=== PATIENT | female | born 1940 | race Caucasian/White ===

== ENCOUNTER 2017-08-17 12:43 | Emergency (ER) | payer MEDICARE, OTHER ==
[2017-08-17 12:55] VITALS: BP 167/75; PULSE 61; RESP 18; TEMP 97.8; O2SAT 100; BMI 23.4
[2017-08-17] MEDS ORDERED: Sodium Chloride 0.9% 1,000 ML IV STA (13:08)
--- NOTE | 2017-08-17 13:09 | ED PDOC ---
HPI:Nausea, Vomiting, Diarrhea Time Seen by Provider: 08/17/17 12:59 Chief Complaint (Provider): Vomiting History Per: Patient History/Exam Limitations: no limitations Onset/Duration Of Symptoms: Days (x1) Current Symptoms Are (Timing): Still Present Associated Symptoms: Nausea, Vomiting Additional History Per: Family (Son) Additional Complaint(s): Mckenna is a 77 y/o female who presents to the ED complaining of nausea associated with generalized weakness and 2 episodes of vomiting since waking up today. Denies hematemesis. No headache, dizziness, diarrhea, abdominal pain, chest pain , shortness of breath, or cough. There are no known sick contacts. Reports she felt feverish but upon arrival to ED patient is afebrile. PMD: Lamin Past Medical History Reviewed: Historical Data, Nursing Documentation, Vital Signs Vital Signs: Last Vital Signs Temp 97.8 F 08/17/17 12:51 Pulse 61 08/17/17 12:51 Resp 18 08/17/17 12:51 BP 167/75 H 08/17/17 12:51 Pulse Ox 100 08/17/17 12:51 - Medical History PMH: Arthritis, HTN, Hypercholesterolemia, Hypothyroidism - Surgical History Surgical History: Cholecystectomy - Family History Family History: States: Unknown Family Hx - Social History Current smoker - smoking cessation education provided: No Alcohol: None Drugs: Denies - Home Medications Home Medications: Ambulatory Orders Medication Instructions Recorded Ondansetron [Zofran] 4 mg PO Q8H PRN #6 tab 08/17/17 - Allergies Allergies/Adverse Reactions: Allergies Allergy/AdvReac Type Severity Reaction Status Date / Time No Known Allergies Allergy Unverified 07/28/13 14:14 Review of Systems ROS Statement: Except As Marked, All Systems Reviewed And Found Negative Constitutional: Positive for: Fever, Weakness (generalized) Cardiovascular: Negative for: Chest Pain Respiratory: Negative for: Cough, Shortness of Breath Gastrointestinal: Positive for: Nausea, Vomiting. Negative for: Abdominal Pain , Diarrhea, Hematemesis Genitourinary Female: Negative for: Dysuria, Frequency, Incontinence Musculoskeletal: Negative for: Back Pain, Leg Pain Neurological: Negative for: Weakness, Numbness, Headache, Dizziness Physical Exam - Reviewed Nursing Documentation Reviewed: Yes Vital Signs Reviewed: Yes - Physical Exam Appears: Positive for: Non-toxic, No Acute Distress Head Exam: Positive for: ATRAUMATIC, NORMAL INSPECTION, NORMOCEPHALIC Skin: Positive for: Normal Color, Warm, Dry Eye Exam: Positive for: EOMI, Normal appearance, PERRL Neck: Positive for: Normal, Painless ROM, Supple Cardiovascular/Chest: Positive for: Regular Rate, Rhythm. Negative for: Murmur Respiratory: Positive for: Normal Breath Sounds. Negative for: Accessory Muscle Use, Respiratory Distress Pulses-Radial (L): 2+ Pulses-Radial (R): 2+ Gastrointestinal/Abdominal: Positive for: Normal Exam, Soft. Negative for: Tenderness Back: Positive for: Normal Inspection. Negative for: L CVA Tenderness, R CVA Tenderness, Vertebral Tenderness Extremity: Positive for: Normal ROM. Negative for: Pedal Edema, Deformity Neurologic/Psych: Positive for: Alert, Oriented. Negative for: Motor/Sensory Deficits - Laboratory Results Result Diagrams: 08/17/17 12:25 08/17/17 12:25 Interpretation Of Abn Labs: 3.4 k - ECG ECG: Positive for: Interpreted By Me, Viewed By Me ECG Rhythm: Positive for: Normal QRS, Sinus Rhythm Interpretation Of Abn EKG: no infarcting pattern O2 Sat by Pulse Oximetry: 100 (RA) Pulse Ox Interpretation: Normal - Radiology X-Ray: Interpreted by Me, Viewed By Me X-Ray Interpretation: No Acute Disease - Progress ED Course And Treament: 1535: Pt. had fall 2 weeks ago accidentally and has pain to the L shoulder. X- ray done and no acute. 1539: Stable. Tolerated PO. Ambulated with no issues. AAOx3. Smiling. Fu with pcp. Medical Decision Making Medical Decision Making: Time: 13:07 Initial Plan: --EKG --CMP --Lipase --Troponin I --CBC --NS IV 1000 ml at 1000 mls/hr --Zofran 4 mg IV --Pending reevaluation Scribe Attestation: Documented by Carrie Shoaib, acting as a scribe for Radhames Ferguson MD Provider Scribe Attestation: All medical record entries made by the Scribe were at my direction and personally dictated by me. I have reviewed the chart and agree that the record accurately reflects my personal performance of the history, physical exam, medical decision making, and the department course for this patient. I have also personally directed, reviewed, and agree with the discharge instructions and disposition. Disposition - Clinical Impression Clinical Impression: Vomiting, Hypokalemia - Patient ED Disposition Is Patient to be Admitted: No Counseled Patient/Family Regarding: Studies Performed, Diagnosis, Need For Followup, Rx Given - Disposition Referrals: [facility] [Outside] - 08/20/17 Disposition: Routine/Home Disposition Time: 15:40 Condition: STABLE Additional Instructions: Return if not better in 3 days. Prescriptions: Ondansetron [Zofran] 4 mg PO Q8H PRN #6 tab PRN Reason: Nausea/Vomiting Instructions: Hypokalemia (ED), Acute Nausea and Vomiting (ED) Print Language: PU[place] R[place]
[2017-08-17 13:23] LABS: BASO # 0.1 K/uL (0.0-0.2); BASO % 0.9 % (0.0-2.0); EOS % 0.5 % (0.0-4.0); HEMATOCRIT 36.6 % (34.0-47.0); LYMPH # 1.2 K/uL (1.0-4.3); LYMPH % 17.8 % (20.0-40.0); MEAN CELL VOLUME 86.3 fl (81.0-99.0); MEAN CORPUSCULAR HEMOGLOBIN 28.3 pg (27.0-31.0); MEAN CORPUSCULAR HGB CONC 32.8 g/dL (33.0-37.0); MEAN PLATELET VOLUME 9.5 fl (7.2-11.7); MONO # 0.3 K/uL (0.0-0.8); MONO % 4.7 % (0.0-10.0); NEUT # 5.2 K/uL (1.8-7.0); NEUT % 76.1 % (50.0-75.0); RED CELL DISTRIBUTION WIDTH 13.4 % (11.5-14.5); WHITE BLOOD COUNT 6.9 K/uL (4.8-10.8)
[2017-08-17 13:31] LABS: ALB/GLOB RATIO 1.3 (1.0-2.1); ALKALINE PHOSPHATASE 46 U/L (38-126); ALT/SGPT 37 U/L (9-52); AST/SGOT 26 U/L (14-36); BILIRUBIN,TOTAL 0.4 mg/dl (0.2-1.3); BLOOD UREA NITROGEN 18 mg/dl (7-17); CALCIUM 9.1 mg/dL (8.4-10.2); CARBON DIOXIDE 30 mmol/L (22-30); CHLORIDE 97 mmol/L (98-107); GFR AFRICAN-AMERICAN > 60; GLUCOSE,RANDOM 114 mg/dL (65-105); LIPASE 96 U/L (23-300); POTASSIUM 3.4 MMOL/L (3.6-5.0); SODIUM 139 mmol/l (132-148)
--- NOTE | 2017-08-17 15:24 | RAD ---
PROCEDURE: Radiographs of the Left Shoulder HISTORY: Shoulder pain COMPARISON: No prior. FINDINGS: BONES: Bone alignment and mineralization are normal. There is no acute displaced fracture or bone destruction. JOINTS: There is mild degenerative osteoarthrosis in the acromioclavicular joint. The glenohumeral joint is normal. SOFT TISSUES: Normal. OTHER FINDINGS: None. IMPRESSION: No acute fracture or dislocation. 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
[2017-08-17] MEDS ORDERED: Potassium Chloride 20 mEq ER Tab PO STA (15:41)
[2017-08-17] MEDS ORDERED: Potassium Chloride 20 mEq ER Tab PO ONE (15:50)
--- NOTE | 2017-08-18 11:56 | CARD ---
APPROVED REPORT EKG Measurement Heart [id number] <Conclusion> Normal sinus rhythm Nonspecific ST and T wave abnormality Abnormal ECG
== END 2017-08-17 17:30 | disposition home or self-care (01) ==
LOC: H.ER 12:43 → SUPCPDRO 12:43 → H.ER 17:30
DX: R11.11 Vomiting without nausea (principal); E87.6 Hypokalemia; I10 Essential (primary) hypertension; E03.9 Hypothyroidism, unspecified; E78.00 Pure hypercholesterolemia, unspecified
CPT/HCPCS: 73030; 80053; 83690; 84484; 85025; 93005; 96374; 99285; J2405; J7040

== ENCOUNTER 2018-03-16 15:29 | Emergency (ER) | payer MEDICARE, OTHER ==
[2018-03-16 15:29] VITALS: BMI 23.4
[2018-03-16 15:40] VITALS: BP 133/76; RESP 16; TEMP 98; O2SAT 100
[2018-03-16] MEDS ORDERED: Morphine 4 MG/ML VIAL IM ONE (15:58)
--- NOTE | 2018-03-16 16:02 | ED PDOC ---
Upper Extremity Pain/Injury Time Seen by Provider: 03/16/18 15:55 Chief Complaint (Nursing): Upper Extremity Problem/Injury Chief Complaint (Provider): Shoulder pain History Per: Patient History/Exam Limitations: no limitations Current Symptoms Are (Timing): Still Present Additional Complaint(s): 78 year old female, with a past medical history of chronic arthritic pain as per son, presented to ED complaining of shoulder pain with onset of 1 day. Patient reports that pain began after she tried to move her handicapped son while changing his diaper. She took tramadol and motrin without relief. She denies any falls. PCP: Lamin Hawkins Past Medical History Reviewed: Historical Data, Nursing Documentation, Vital Signs Vital Signs: Last Vital Signs Temp 98 F 03/16/18 15:38 Pulse 56 L 03/16/18 15:38 Resp 16 03/16/18 15:38 BP 133/76 03/16/18 15:38 Pulse Ox 100 03/16/18 15:38 - Medical History PMH: Arthritis, HTN, Hypercholesterolemia, Hypothyroidism - Surgical History Surgical History: Cholecystectomy - Family History Family History: States: Unknown Family Hx - Home Medications Home Medications: Ambulatory Orders Medication Instructions Recorded Ondansetron [Zofran] 4 mg PO Q8H PRN #6 tab 08/17/17 Ibuprofen [Motrin] 600 mg PO Q8 PRN #21 tab 03/16/18 - Allergies Allergies/Adverse Reactions: Allergies Allergy/AdvReac Type Severity Reaction Status Date / Time No Known Allergies Allergy Unverified 07/28/13 14:14 Review of Systems ROS Statement: Except As Marked, All Systems Reviewed And Found Negative Musculoskeletal: Positive for: Shoulder Pain (right) Physical Exam - Reviewed Nursing Documentation Reviewed: Yes Vital Signs Reviewed: Yes - Physical Exam Appears: Positive for: Non-toxic, No Acute Distress Head Exam: Positive for: ATRAUMATIC, NORMAL INSPECTION, NORMOCEPHALIC Eye Exam: Positive for: Normal appearance Neck: Positive for: Normal, Painless ROM Extremity: Positive for: Other (Tender right arm proximally to the shoulder). Negative for: Tenderness (AC joint and clavicle) Neurologic/Psych: Positive for: Alert, Oriented - ECG O2 Sat by Pulse Oximetry: 100 (RA) Pulse Ox Interpretation: Normal - Progress ED Course And Treament: XRY SHOULDER: CALICIFIC TENDONITIS NOTED. OTHERWISE NEGATIVE SHOULDER SLING Medical Decision Making Medical Decision Making: Initial Impression: Right shoulder pain Initial Plan: Morphine 4mg IM Ondansetron 4mg PO X-ray right shoulder Scribe Attestation: Documented by Danilo Salinas acting as a scribe for Mike CHAMPAGNE. Provider Scribe Attestation: All medical record entries made by the Scribe were at my direction and personally dictated by me. I have reviewed the chart and agree that the record accurately reflects my personal performance of the history, physical exam, medical decision making, and the department course for this patient. I have also personally directed, reviewed, and agree with the discharge instructions and disposition. Disposition - Clinical Impression Clinical Impression: Calcific tendinitis, Shoulder pain - Patient ED Disposition Is Patient to be Admitted: No - Disposition Referrals: Sandip Moses III, MD [Staff Provider] - Disposition: Routine/Home Disposition Time: 16:25 Condition: FAIR Prescriptions: Ibuprofen [Motrin] 600 mg PO Q8 PRN #21 tab PRN Reason: Pain, Moderate (4-7) Instructions: Shoulder Pain (DC), Tendonitis (DC) Forms: [employer] (Maltese) Print Language: UKRAINIAN
[2018-03-16] MEDS ORDERED: Morphine 4 MG/ML VIAL ONE (16:04)
--- NOTE | 2018-03-16 16:24 | RAD ---
PROCEDURE: Radiographs of the Right Shoulder HISTORY: SHOULDER PAIN COMPARISON: No prior. FINDINGS: BONES: No fracture. A amorphous calcification adjacent to greater tuberosity consistent with calcific tendinitis. JOINTS: Normal. Glenohumeral and acromioclavicular joints preserved. No osteoarthritis. SOFT TISSUES: Normal. OTHER FINDINGS: None. IMPRESSION: Calcific tendinitis. Otherwise unremarkable.
[2018-03-16 17:31] VITALS: PULSE 55
== END 2018-03-16 17:20 | disposition home or self-care (01) ==
LOC: H.ER 15:29
DX: M75.31 Calcific tendinitis of right shoulder (principal); E03.9 Hypothyroidism, unspecified; E78.00 Pure hypercholesterolemia, unspecified; I10 Essential (primary) hypertension
CPT/HCPCS: 73030; 96372; 99285; J2270